=== PATIENT | male | born 2005 | race Caucasian/White ===

== ENCOUNTER 2023-09-25 04:14 | Inpatient (IN) ==
[2023-09-25 05:09] LABS: ABS Eosinophils 0.1 10^3/uL (0.0-0.5); ABS Lymphocytes 2.9 10^3/uL (1.0-4.8); ABS Monocytes 1.1 10^3/uL (0.0-1.1); ABS Nucleated RBC 0.02 10^3/ul; Eosinophil % 0.6 %; Hematocrit 44.7 % (38-53); Hemoglobin 15.2 g/dL (13.2-16.3); Lymphocyte % 23.9 %; Mean Corpuscular Hemoglobin 30.6 pg (27-33); Mean Corpuscular Volume 90.1 fL (80-97); Nucleated Red Blood Cells % 0.2 %/100WBC (0.0-0.8); Platelet Count 259 10^3/uL (150-450); Red Blood Count 4.96 10^6/uL (4.06-5.63); Red Cell Distribution Width 14.5 % (12-17)
[2023-09-25 05:23] LABS: Urine Appearance Clear; Urine Bilirubin Negative (Negative); Urine Blood Trace (Negative); Urine Color Colorless; Urine Glucose Negative (Negative); Urine Ketones Negative (Negative); Urine Nitrite Negative (Negative); Urine Protein Negative (Negative); Urine Specific Gravity 1.003 (1.002-1.030); Urine Urobilinogen Negative (Negative)
[2023-09-25 05:55] LABS: ALT 27 U/L (7-52); AST 51 U/L (13-39); Acetaminophen < 15 mcg/mL; Albumin 5.5 g/dL (3.2-5.2); Albumin/Globulin Ratio 1.8 (1-3); Alcohol, S 227 mg/dL (<13); Alkaline Phosphatase 75 U/L (35-149); Anion Gap 9 mmol/L (2-16); Blood Urea Nitrogen 13 mg/dL (6-24); CO2 Carbon Dioxide 24 mmol/L (22-32); Calcium 9.9 mg/dL (8.6-10.3); Chloride 108 mmol/L (101-111); Glucose 114 mg/dL (70-100); Potassium 4.1 mmol/L (3.5-5.0); Salicylate < 2.50 mg/dL (<30); Sodium 141 mmol/L (135-145); Total Bilirubin 0.6 mg/dL (0.2-1.0); Total Protein 8.5 g/dL (6.4-8.9); eGFR CKD-EPI 110.5 (>60)
[2023-09-25 05:59] LABS: Urine Benzodiazepine Screen None Detected (None Detect); Urine Cannabinoids Screen Presumptive Positive (None Detect); Urine Opiates Screen None Detected (None Detect)
[2023-09-25] MEDS: OLANZapine 10 mg TAB*ODT PO ONE (06:52)
[2023-09-25] MEDS ORDERED: Lorazepam PYXIS KEY PRN (13:17)
[2023-09-25] MEDS: Droperidol 5 MG/2 ML 2 ML VIAL IM ONE (13:32)
[2023-09-25] MEDS: LORazepam 2 mg VIAL 1 ml IM ONE (13:32)
[2023-09-25] MEDS ORDERED: Al Hydrox/Mg Hydrox/Simet LIQ 30 ML UDC PO PRN (16:44)
[2023-09-26] MEDS: Vitamin THERAPEUTIC TAB PO SCH (11:46)
[2023-09-27 08:23] VITALS: BP 128/57
== END 2023-09-27 15:32 | disposition home or self-care (01) | DRG 897 ==
LOC: ED 04:14 → BSU 13:36
PROVIDERS: ADMIT Psychiatry & Neurology Addiction Psychiatry; ATTEND Psychiatry & Neurology Psychiatry